=== PATIENT | female | born 1985 | race Asian ===

== ENCOUNTER 2019-08-29 11:12 | Inpatient (IN) | payer BC ==
[2019-09-05] MEDS ORDERED: Bupivacaine/Epinephrine 0.25% 30 ML VIAL ONE (12:50)
[2019-09-05] MEDS ORDERED: Ondansetron PF 4 MG/2 ML Vial IVP PRN (20:43)
[2019-09-05] MEDS ORDERED: hydrALAZINE 20 MG/ML VIAL SLOW IVP PRN (20:43)
[2019-09-05] MEDS ORDERED: HYDROcodone/Acetaminophen 5/325 mg Tablet PO PRN ×2 (20:43)
[2019-09-05] MEDS ORDERED: Misoprostol 100 MCG TAB VAG SCH (20:43)
[2019-09-05] MEDS ORDERED: Promethazine HCl 25 MG/ML VIAL IM PRN (20:43)
[2019-09-05] MEDS ORDERED: Ibuprofen 800 MG TAB PO PRN (20:43)
[2019-09-05] MEDS ORDERED: Lidocaine 1% (PF) 30 ML VIAL SC PRN (20:43)
[2019-09-05] MEDS ORDERED: NS w/ Oxytocin 10 units 500 ML IV SCH ×2 (20:43)
[2019-09-05] MEDS ORDERED: Butorphanol Tartrate 1 MG/ML VIAL SLOW IVP PRN (20:43)
[2019-09-05] MEDS ORDERED: NS / Oxytocin 40 units/1000ml 1,000 ML IV PRN (20:43)
[2019-09-05] MEDS: Lactated Ringer's 1,000 ML IV SCH (20:45)
[2019-09-05 21:52] LABS: Hemoglobin 11.7 g/dL (12.0-16.0); Mean Corpuscular HGB CONC 33.5 g/dL (32.0-36.0); Mean Corpuscular Hemoglobin 30.3 pg (27.0-31.0); Mean Corpuscular Volume 90.6 fL (78.0-98.0); Mean Platelet Volume 8.8 fL (7.4-10.4); Platelet Count 208 thou/uL (130-400); Red Blood Cell (RBC) Count 3.86 mill/uL (4.20-5.40); White Blood Cell (WBC) Count 11.2 thou/uL (4.8-10.8)
[2019-09-05 22:00] VITALS: BMI 26.5
[2019-09-05 22:33] LABS: Syphilis Antibody Nonreactive (Nonreactive); Syphilis Antibody Index 0.13 S/CO (<1.00 Non-Reactive)
[2019-09-05 22:53] LABS: HBSAg Index 0.39 S/CO (0-0.99); Hep B Surf Ag Non-Reactive S/CO (NonReactive)
[2019-09-06] MEDS ORDERED: Fentanyl 4 mcg/Bup 0.1% Cadd 100 ML ONE (04:47)
[2019-09-06] MEDS: Lactated Ringer's 1,000 ML IV SCH (05:15)
[2019-09-06] MEDS ORDERED: Ondansetron PF 4 MG/2 ML Vial IVP PRN ×2 (05:25→12:00)
[2019-09-06] MEDS ORDERED: Lactated Ringer's 500 ML IV PRN (05:25)
[2019-09-06] MEDS ORDERED: Promethazine HCl 25 MG/ML VIAL IM PRN (05:25)
[2019-09-06] MEDS ORDERED: diphenhydrAMINE 50 MG/ML VIAL IVP PRN (05:25)
[2019-09-06] MEDS ORDERED: Naloxone HCl 0.4 mg/ml Vial IVP PRN ×2 (05:25)
[2019-09-06] MEDS ORDERED: EPHEDRINE 25 MG/5 ML SYRINGE SLOW IVP PRN (05:25)
[2019-09-06] MEDS ORDERED: Acetaminophen 325 MG TAB PO PRN (05:25)
[2019-09-06] MEDS ORDERED: Communication Order-Pharmacy FS SCH (05:30)
[2019-09-06] MEDS ORDERED: Fentanyl 4 mcg/Bupivacaine 0.1% Cassette 100 ML EPIDURAL SCH (05:30)
--- NOTE | 2019-09-06 10:34 | PDOC.OPDEL ---
OB Operative/Delivery Note Delivery Dr/Surgeon: Fernie Pre-Delivery Diagnosis: medically indicated induction (41 weeks) Procedure/Post Delivery Dx: spontaneous vaginal delivery Weeks gestation: 41 Anesthesia: epidural - Findings A Sex: female - 1 min: 9 - 5 min: 9 - Additional Findings/Plan Placenta delivered: spontaneous Repaired Obstetrical Laceration: 2nd degree (w sulcal to left) Estimated blood loss: 450ml Post delivery plan: routine recovery
[2019-09-06] MEDS ORDERED: Bisacodyl 10 MG SUPP PR PRN (12:00)
[2019-09-06] MEDS ORDERED: Preparation H Ointment 28 GM TUBE PR PRN (12:00)
[2019-09-06] MEDS ORDERED: diphenhydrAMINE 25 MG CAP PO PRN (12:00)
[2019-09-06] MEDS ORDERED: NS / Oxytocin 40 units/1000ml 1,000 ML IV SCH (12:00)
[2019-09-06] MEDS ORDERED: HYDROcodone/Acetaminophen 5/325 mg Tablet PO PRN ×2 (12:00)
[2019-09-06] MEDS ORDERED: Lanolin Ointment 7 GM TUBE TOP PRN (12:00)
[2019-09-06] MEDS ORDERED: hydrALAZINE 20 MG/ML VIAL SLOW IVP PRN (12:00)
[2019-09-06] MEDS ORDERED: Milk Of Magnesia 30 ML UDCUP PO PRN (12:00)
[2019-09-06] MEDS ORDERED: Benzocaine-Menthol 82.5 ML CAN TOP PRN (12:00)
[2019-09-06] MEDS ORDERED: Prenatal Vitamin 1 TAB PO SCH (12:15)
[2019-09-06] MEDS: Ibuprofen 800 MG TAB PO SCH ×2 (14:30→22:30)
[2019-09-06] MEDS: Ferrous Sulfate 325 MG TAB PO SCH (16:51)
[2019-09-06] MEDS: Docusate Calcium (SURFAK) 240 MG CAP PO SCH (22:30)
[2019-09-07 05:45] LABS: Hemoglobin 8.2 g/dL (12.0-16.0); Mean Corpuscular HGB CONC 33.2 g/dL (32.0-36.0); Mean Corpuscular Hemoglobin 30.5 pg (27.0-31.0); Mean Corpuscular Volume 91.8 fL (78.0-98.0); Platelet Count 148 thou/uL (130-400); Red Blood Cell (RBC) Count 2.68 mill/uL (4.20-5.40); White Blood Cell (WBC) Count 16.6 thou/uL (4.8-10.8)
[2019-09-07] MEDS: Ibuprofen 800 MG TAB PO SCH ×3 (05:55→21:19)
[2019-09-07] MEDS: Ferrous Sulfate 325 MG TAB PO SCH ×2 (08:13→16:19)
[2019-09-07] MEDS: Docusate Calcium (SURFAK) 240 MG CAP PO SCH ×2 (08:13→21:19)
[2019-09-07] MEDS: Prenatal Vitamin 1 TAB PO SCH (08:13)
--- NOTE | 2019-09-07 08:47 | PDOC.PP ---
Post Progress Note Post Day #: 1 Subjective: doing well, ambulating, voiding, minimal lochia, working on latch PO intake tolerated: yes Flatus: yes Ambulation: yes Vital Signs (12 hours) Temp Pulse Resp BP Pulse Ox 09/07/19 07:06 98.3 F 96 12 103/54 L 96 09/07/19 06:04 97.9 F 104 H 16 104/58 L 09/07/19 01:00 97.7 F 89 17 105/64 Weight Weight 150 lb - Physical Examination General: NAD Respiratory: non-labored breathing Abdominal: no distention Fundus firm & at: below umb Skin: no rash Psychiatric: A&Ox3, normal affect Result Diagrams: 09/07/19 05:27 Additional Labs: Post Labs Blood Type O POSITIVE 09/05/19 23:14 Hep Bs Antigen Non-Reactive S/CO (NonReactive) 09/05/19 21:40 (1) Vaginal delivery Code(s): O80 - ENCOUNTER FOR FULL-TERM UNCOMPLICATED DELIVERY Status: Acute (2) 41 weeks gestation of Code(s): Z3A.41 - 41 WEEKS GESTATION OF Status: Acute (3) Anemia due to blood loss, acute Code(s): D62 - ACUTE POSTHEMORRHAGIC ANEMIA Status: Acute - Assessment/Plan PPD1 doing well, discussed iron PP for anemia after acute blood loss during repair of vaginal tears. Patient doing well, likely DC tomorrow.
[2019-09-07] MEDS ORDERED: Adacel (T-DAP) 0.5 ML SYRINGE IM ONE (09:00)
[2019-09-08] MEDS: Ibuprofen 800 MG TAB PO SCH ×2 (05:58→13:05)
[2019-09-08] MEDS: Ferrous Sulfate 325 MG TAB PO SCH (07:59)
[2019-09-08] MEDS: Prenatal Vitamin 1 TAB PO SCH (07:59)
[2019-09-08] MEDS: Docusate Calcium (SURFAK) 240 MG CAP PO SCH (07:59)
--- NOTE | 2019-09-08 07:59 | PDOC.PP ---
Post Progress Note Post Day #: 2 Subjective: Pt doing well on PPD 2. Minimal lochia. Continuing to work on latch and is pumping and giving her small amounts in syringe. PO intake tolerated: yes Flatus: yes Ambulation: yes Vital Signs (12 hours) Temp Pulse Resp BP Pulse Ox 09/07/19 20:10 98.5 F 108 H 18 112/69 98 Weight Weight 150 lb - Physical Examination General: NAD Respiratory: non-labored breathing Abdominal: + bowel sounds, lochia, no distention, appropriately TTP Fundus firm & at: 2 cm below umbilicus Extremities: negative homans (B) Skin: no rash Neurological: no gross focal deficits Psychiatric: A&Ox3, normal affect Result Diagrams: 09/07/19 05:27 Additional Labs: Post Labs Blood Type O POSITIVE 09/05/19 23:14 Hep Bs Antigen Non-Reactive S/CO (NonReactive) 09/05/19 21:40 (1) 41 weeks gestation of Code(s): Z3A.41 - 41 WEEKS GESTATION OF Status: Acute (2) Anemia due to blood loss, acute Code(s): D62 - ACUTE POSTHEMORRHAGIC ANEMIA Status: Acute (3) Vaginal delivery Code(s): O80 - ENCOUNTER FOR FULL-TERM UNCOMPLICATED DELIVERY Status: Acute - Assessment/Plan Pt doing well on PPD2. VSS, afebrile. Minimal lochia. PT will continue iron for pp anemia. Plan for discharge today. Discharge planning discussed with patient.
[2019-09-08 08:47] VITALS: BP 108/62; TEMP 98.7
== END 2019-09-08 14:53 | disposition home or self-care (01) | DRG 806 ==
LOC: EDSTATUS 13:03 → L&D 09-05 20:27 → 3SW 09-06 13:05
PROVIDERS: ADMIT Obstetrics & Gynecology; ATTEND Obstetrics & Gynecology
PROC: 10E0XZZ Delivery of Products of Conception, External Approach (ICD-10-PCS; principal; 2019-09-06)
PROC: 0KQM0ZZ Repair Perineum Muscle, Open Approach (ICD-10-PCS; 2019-09-06)
PROC: 3E0P7VZ Introduction of Hormone into Female Reproductive, Via Natural or Artificial Opening (ICD-10-PCS; 2019-09-06)
PROC: 3E033VJ Introduction of Other Hormone into Peripheral Vein, Percutaneous Approach (ICD-10-PCS; 2019-09-06)
DX: O48.0 Post-term pregnancy (principal); D62 Acute posthemorrhagic anemia; Z37.0 Single live birth; Z3A.41 41 weeks gestation of pregnancy; O70.1 Second degree perineal laceration during delivery; O90.81 Anemia of the puerperium
CPT/HCPCS: 36415; 51702; 85027; 86780; 86850; 86900; 86901; 87340